=== PATIENT | female | born 1980 | race Asian ===

== ENCOUNTER 2018-03-28 18:54 | Emergency (ER) | payer OTHER ==
[~2018-03-28] VITALS: Ht 144.8 cm; Wt 56.7 kg
[2018-03-28 18:58] VITALS: Ht 144.8 cm; Wt 56.7 kg
[2018-03-28 19:36] LABS: UA SPECIFIC GRAVITY <=1.005 (1.005-1.035); microscopic required? YES; urine erythrocyte NEGATIVE (NEGATIVE)
[2018-03-28 19:40] LABS: BASOPHIL % 0.4 % (0-2); PLATELET COUNT 374 x10^3mcL (130-400); RED CELL DISTRIBUTION WIDTH 13.5 % (11.5-14.5)
[2018-03-28 19:45] LABS: CALCIUM 9.3 mg/dL (8.5-10.1); CARBON DIOXIDE 28.2 mmol/L (21-32); CHLORIDE SERUM 101 mmol/L (98-107); CREATININE SERUM 0.8 mg/dL (0.6-1.0); GFR1 > 60 mL/min; GLUCOSE SERUM 95 mg/dL (74-106); POTASSIUM SERUM 3.5 mmol/L (3.5-5.1); SODIUM SERUM 139 mmol/L (136-145)
[2018-03-28 19:49] LABS: ALBUMIN 4.6 g/dL (3.4-5.0); ALKALINE PHOSPHATASE 64 U/L (46-116); ALT/SGPT 16 U/L (14-59); AST/SGOT 16 U/L (15-37); BILIRUBIN TOTAL 0.4 mg/dL (0.20-1.00); CHOLESTEROL 191 mg/dL (<200); CHOLESTEROL/HDL RATIO 2.6; HDL CHOLESTEROL 74 mg/dL (40-60); LIPASE 196 IU/L (73-393); TOTAL PROTEIN, SERUM 9.3 g/dL (6.4-8.2); TRIGLYCERIDES 212 mg/dL (<150)
[2018-03-28 20:03] LABS: T3 TOTAL 1.1 ng/mL
[2018-03-28 20:18] LABS: FREE T4 1.05 ng/dL (0.76-1.46); FREE THYROXINE INDEX 3.8 ug/dL (1.4-4.5); T4(THYROXINE) 11.4 ug/dL (4.7-13.3)
[2018-03-28 21:04] VITALS: BP 142/95
== END 2018-03-28 21:04 | disposition home or self-care (01) ==
LOC: ED 18:54
PROVIDERS: Specialist
DX: I10 Essential (primary) hypertension (principal); R42 Dizziness and giddiness; R51 Headache
CPT/HCPCS: 83880; 84439; J1885; J3490; J7030